=== PATIENT | male | born 1970 | race Caucasian/White ===

== ENCOUNTER 2019-05-30 10:37 | Emergency (ER) | payer OTHER, SELFPAY ==
[2019-05-30 11:09] VITALS: BP 129/75; PULSE 65; RESP 20; TEMP 36.6; O2SAT 100
--- NOTE | 2019-05-30 12:01 | ED.URI ---
HPI - URI/Sore Throat General Chief Complaint: Upper Respiratory Infection Stated Complaint: cough congestion Time Seen by Provider: 05/30/19 11:50 Source: patient and RN notes reviewed Mode of arrival: ambulatory Limitations: no limitations History of Present Illness HPI Narrative: Patient presents today with a 10 to 14-day history of congestion, sinus pressure, postnasal drip, cough, body aches, fatigue. Reports symptoms improve then worsened again. Reports 1 episode of fever. Denies shortness of breath. He is a non-smoker. Denies history of asthma or COPD. He has been taking Mucinex and Zicam at home without much relief. He did receive a flu vaccine this season. MD elicited complaint: cough and nasal congestion Related Data Allergies Allergy/AdvReac Type Severity Reaction Status Date / Time Penicillins Allergy Unknown Anaphylactic Verified 05/30/19 11:52 Shock Review of Systems Review of Systems: Narrative: CONSTITUTIONAL: Denies chills, or sweats.+Body aches, fever, Fatigue EYES: Denies visual changes, redness, or discharge. ENT: Denies rhinorrhea, sore throat, or otalgia.+Congestion, postnasal drip CARDIOVASCULAR: Denies chest pain, palpitations, or edema. RESPIRATORY: Denies dyspnea.+Cough GASTROINTESTINAL: Denies abdominal pain, nausea, vomiting, or diarrhea. GENITOURINARY: Denies dysuria or hematuria. SKIN: Denies rash, itching, or wounds. MUSCULOSKELETAL: Denies back pain, joint pain, or myalgia. NEUROLOGIC: Denies headache, numbness, tingling, or weakness. PSYCH: Denies depression or anxiety. PMFSH Comments At time of signature, I have reviewed and agree with nursing past medical, surgical, social and family history unless otherwise noted. Please see nursing chart for further information. There is no relevant family history pertinent to the presenting complaint Exam Narrative: Exam Narrative: GENERAL: Mildly ill-appearing, well-nourished, and in no acute distress. HEAD: Normocephalic, atraumatic. EYES: EOMI. No redness or drainage. Conjunctivae normal. ENT: Mucous membranes pink and moist. Nares Congested. Bilateral swollen and erythematous nasal turbinates.No rhinorrhea. TMs normal bilaterally. Throat normal. Uvula midline. NECK: Normal AROM. Supple. No lymphadenopathy. CHEST: No respiratory distress. Clear to auscultation. HEART: Regular rate and rhythm. No murmur appreciated. Normal peripheral pulses. EXTREMITIES: Normal range of motion. No edema. SKIN: Warm, dry, no rash. NEURO: No focal deficits. Alert and oriented x3. Gait steady. PSYCH: Normal affect. No signs of depression or anxiety. Course Vital Signs Vital signs: Vital Signs Temperature 97.9 F 05/30/19 11:09 Pulse Rate 65 05/30/19 11:09 Respiratory Rate 20 05/30/19 11:09 Blood Pressure 129/75 05/30/19 11:09 Pulse Oximetry 100 05/30/19 11:09 Temperature 97.9 F 05/30/19 11:09 Pulse Rate 65 05/30/19 11:09 Respiratory Rate 20 05/30/19 11:09 Blood Pressure 129/75 05/30/19 11:09 Pulse Oximetry 100 05/30/19 11:09 Reviewed. Pt has been instructed to follow up with his PCP regarding his elevated blood pressure today. MDM - URI/Sore Throat Differential Diagnosis Differential diagnosis: Likely upper respiratory infection, otitis media, sinusitis, viral infection, bronchitis, influenza and other (Strep throat) Lab Data Attestation: I reviewed the patient's lab results. Labs: Strep Screen Presumptive Negative *(Reference Range: Negative)* Critical Care Time Critical Care Time Critical Care Time: No Discharge Plan Discharge Clinical Impression: Bronchitis Sinusitis Qualifiers: Sinusitis location: unspecified location Chronicity: acute Recurrence: not specified as recurrent Qualified Code(s): J01.90 - Acute sinusitis, unspecified Patient Disposition: Home, Self-Care Condition: Stable Instructions: Antibiotic Form, Sinusitis (ED), Acute Bronchitis (E
== END 2019-05-30 12:10 | disposition home or self-care (01) ==
PROVIDERS: Emergency Provider Nurse Practitioner; PCP Family Medicine
DX: J40 Bronchitis, not specified as acute or chronic (principal); J01.90 Acute sinusitis, unspecified
CPT/HCPCS: 87081; 87804; 87880; 99213; G0463

== ENCOUNTER 2020-09-11 16:28 | Outpatient (CLI) | payer OTHER, SELFPAY ==
--- NOTE | ~2020-09-11 | US_ITS ---
EXAMINATION: US retroperitoneal comp DATE: 09/11/2020 17:13 INDICATION: Chronic kidney disease stage III. TECHNIQUE: Multiple ultrasound grayscale images of the kidneys were obtained. COMPARISON: CT abdomen and pelvis 09/11/2020 FINDINGS: The right kidney measures 11.8 x 4.9 x 4.9 cm. The left kidney measures 11.7 x 5.7 x 5.1 cm. The kidn eys demonstrate normal parenchymal echogenicity. There are cysts in the kidneys measuring up to 4.8 c m on the left. There is no hydronephrosis. The bladder is normal. IMPRESSION: 1. Normal kidney sizes. No hydronephrosis. Reviewed, dictated and finalized at location A.
--- NOTE | ~2020-09-11 | CT_ITS ---
EXAMINATION: CT abdomen pelvis wo con DATE: 09/11/2020 16:54 INDICATION: Right flank pain. TECHNIQUE: Computed tomography (CT) of the abdomen and pelvis was performed without intravenous contr ast. Automated exposure control and iterative reconstruction technique were employed. The dose-length product was 180.50 mGy-cm. COMPARISON: CT abdomen and pelvis 03/04/2014 FINDINGS: The visualized portions of the lung bases demonstrate mild atelectasis. No pleural effusion . The heart size is normal. No pericardial effusion. There are cysts in the liver measuring up to 2.8 cm. The gallbladder, spleen, pancreas, and adrenal glands are normal. There are cysts in the kidneys measuring up to 4.8 cm on the left. There is no urolithiasis. There are no dilated loops of bowel. T he appendix is normal. There are no pathologically enlarged lymph nodes. There is no free intraperito jeanette fluid. There is mild chronic anterior wedging of T12 and L1 vertebral bodies. IMPRESSION: 1. No urolithiasis. Reviewed, dictated and finalized at location A. IMPRESSION: 1. No urolithiasis.
== END 2020-09-11 16:29 | disposition home or self-care (01) ==
LOC: ANHIMG 16:34
PROVIDERS: PCP Internal Medicine; Visit Provider Internal Medicine
DX: R10.9 Unspecified abdominal pain (principal); N18.30 Chronic kidney disease, stage 3 unspecified
CPT/HCPCS: 74176; 76770